=== PATIENT | female | born 1965 | race Caucasian/White ===

== ENCOUNTER 2017-04-04 17:46 | Emergency (ER) | payer MEDICAID, OTHER ==
[2017-04-04] MEDS ORDERED: predniSONE 20 MG Tab PO ONE (18:11)
--- NOTE | 2017-04-04 18:18 | EDM.PDOC ---
ED HPI GENERAL MEDICAL PROBLEM - General Chief Complaint: Upper Extremity Injury/Pain Stated Complaint: RIGHT ARM PAIN Time Seen by Provider: 04/04/17 17:57 Source of Information: Reports: Patient History Limitations: Reports: No Limitations - History of Present Illness INITIAL COMMENTS - FREE TEXT/NARRATIVE: PATIENT IS A 51-YEAR-OLD FEMALE WHO PRESENTS EMERGENCY DEPARTMENT THIS EVENING WITH A COMPLAINT OF RIGHT UPPER EXTREMITY PAIN. PATIENT STATES SHE DID INJURE RIGHT ELBOW 3 MONTHS AGO BUT PAIN RESOLVED. PATIENT STATES THAT ABOUT ONE MONTH AGO SHE STARTED FEELING RIGHT UPPER EXTREMITY DISCOMFORT AND TINGLING INITIALLY WITH MOVEMENT AND THEN GRADUALLY EVEN WHILE AT REST. NOTICED SYMPTOMS WORSENED. DEPENDING ON POSITION OF HEAD. PAIN RUNS FROM SHOULDER TO FINGERS. SHE IS A [id number] DIABETIC, TAKES METFORMIN, HAS HISTORY OF SCOLIOSIS, AND ALSO HYPERCHOLESTEROLEMIA AND IS CURRENTLY ON A STATIN. HOWEVER, SHE DENIES MUSCLE ACHES. PATIENT ALSO DENIES CERVICAL INJURY OR TRAUMA , FEVER, CHEST PAIN, SHORTNESS OF BREATH, OR LUMPS IN AXILLA. 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 - Related Data Allergies Allergy/AdvReac Type Severity Reaction Status Date / Time No Known Drug Allergies Allergy Other Verified 04/04/17 18:16 Home Meds: Home Meds Aspirin [Adult Low Dose Aspirin EC] 81 mg PO DAILY 10/07/13 [History] Pravastatin [Pravachol] 40 mg PO DAILY 10/07/13 [History] Triamterene/Hydrochlorothiazid [Triamterene-HCTZ 37.5-25 MG] 1 tab PO DAILY [History] clonazePAM [Clonazepam] 0.5 mg PO BID PRN 10/07/13 [History] metFORMIN HCl [Metformin HCl ER] 1,000 mg PO CORAZON 10/07/13 [History] DULoxetine [Cymbalta] 30 mg PO DAILY 04/04/17 [History] DULoxetine [Cymbalta] 60 mg PO DAILY 04/04/17 [History] Naproxen [Naprosyn] 375 mg PO BID #30 tab 04/04/17 [Rx] Prednisone [IJD: predniSONE] 20 mg PO WITHBREAKFAST #5 tab 04/04/17 [Rx] SitaGLIPtin [Januvia] 100 mg PO DAILY 04/04/17 [History] Social & Family History - Tobacco Use Years of Tobacco use: 30 - Alcohol Use Days Per Week of Alcohol Use: 1 Number of Drinks Per Day: 1 Total Drinks Per Week: 1 - Recreational Drug Use Recreational Drug Use: No - Living Situation & Occupation Living situation: Reports: Occupation: Employed Review of Systems - Review of Systems Review Of Systems: ROS reveals no pertinent complaints other than HPI. Constitutional: Reports: No Symptoms Eyes: Reports: No Symptoms Ears: Reports: No Symptoms Nose: Reports: No Symptoms Mouth/Throat: Reports: No Symptoms Respiratory: Reports: No Symptoms Cardiovascular: Reports: No Symptoms GI/Abdominal: Reports: No Symptoms Genitourinary: Reports: No Symptoms Musculoskeletal: Reports: Arm Pain (RIGHT) Skin: Reports: No Symptoms Neurological: Reports: No Symptoms Psychiatric: Reports: No Symptoms ED EXAM, GENERAL - Physical Exam Exam: See Below Exam Limited By: No Limitations General Appearance: Alert, WD/WN, No Apparent Distress Throat/Mouth: Normal Inspection, Normal Oropharynx, No Airway Compromise Head: Atraumatic, Normocephalic Neck: Tender Lateral (WITH RANGE OF MOTION). No: Lymphadenopathy (L), Lymphadenopathy (R), Tender Midline Respiratory/Chest: No Respiratory Distress Back Exam: Normal Inspection Extremities: Arm Pain (WITH CERVICAL MANIPULATION AND SHOULDER RANGE OF MOTION.) . No: Joint Swelling, Limited Range of Motion, Increased Warmth Neurological: Alert, Oriented, Normal Cognition Psychiatric: Normal Affect, Normal Mood Skin Exam: Warm, Dry, Intact, Normal Color, No Rash Lymphatic: No Adenopathy Course - Orders/Labs/Meds Orders: Active Orders 24 hr Category Date Time Status Naproxen Sodium Med 04/04/17 18:15 Ordered 440 mg PO ONETIME predniSONE Med 04/04/17 18:11 Once 40 mg PO ONETIME ONE - Re-Assessments/Exams Free Text/Narrative Re-Assessment/Exam: 04/04/17 18:21 PATIENT IS AFEBRILE, NONTOXIC APPEARING. VITAL SIGNS STABLE. PATIENT WAS GIVEN INITIAL DOSE OF PREDNISONE, NAPROXEN IN THE EMERGENCY DEPARTMENT. PATIENT WILL BE STARTED ON A SHORT DOSE OF PREDNISONE AND IS SCHEDULED TO SEE DR. LIZAMA FOR FURTHER EVALUATION AND CONSIDERATION. Departure - Departure Time of Disposition: 18:22 Disposition: Home, Self-Care 01 Condition: Good Clinical Impression: Cervical radiculopathy - Discharge Information Instructions: Cervical Radiculopathy, [id number] Referrals: Lina Vásquez MD [Primary Care Provider] - Forms: ED Department Discharge Additional Instructions: FOLLOW-UP WITH DR. LIZAMA SCHEDULED. RETURN TO EMERGENCY DEPARTMENT SOONER IF SYMPTOMS CONTINUE OR WORSEN. - My Orders Last 24 Hours: My Active Orders 04/04/17 18:11 predniSONE 40 mg PO ONETIME ONE 04/04/17 18:15 Naproxen Sodium 440 mg PO ONETIME - Assessment/Plan Last 24 Hours: My Active Orders 04/04/17 18:11 predniSONE 40 mg PO ONETIME ONE 04/04/17 18:15 Naproxen Sodium 440 mg PO ONETIME Assessment:: RIGHT ARM PAIN, CERVICAL RADICULOPATHY Plan: FOLLOW-UP WITH DR. LIZAMA SCHEDULED
== END 2017-04-04 18:40 | disposition home or self-care (01) ==
LOC: KA.ED 17:46
DX: M54.12 Radiculopathy, cervical region (principal); M79.601 Pain in right arm; E11.9 Type 2 diabetes mellitus without complications; Z79.84 Long term (current) use of oral hypoglycemic drugs; Z79.82 Long term (current) use of aspirin; Z79.899 Other long term (current) drug therapy
CPT/HCPCS: 99283; A9270

== ENCOUNTER 2017-10-24 22:17 | Emergency (ER) | payer MEDICAID ==
[2017-10-24 22:29] VITALS: BP 111/77
--- NOTE | 2017-10-24 22:50 | EDM.PDOC ---
ED HPI GENERAL MEDICAL PROBLEM - General Chief Complaint: Upper Extremity Injury/Pain Stated Complaint: Pain Time Seen by Provider: 10/24/17 22:41 Source of Information: Reports: Patient History Limitations: Reports: No Limitations - History of Present Illness INITIAL COMMENTS - FREE TEXT/NARRATIVE: Patient is a 52-year-old female who presents to the emergency department this evening with a complaint of right shoulder pain. Patient states that she was seen here on September 26 and underwent a MRI of right shoulder. Results show SLAP tear of labrum. Patient states she is scheduled for surgery November 27. 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 Patient denies recent injury, chest pain, shortness of breath, or fever. 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 Right Shoulder Pain Score (Numeric/FACES): 8 - Related Data Allergies Allergy/AdvReac Type Severity Reaction Status Date / Time No Known Drug Allergies Allergy Other Verified 10/24/17 22:23 Home Meds: Home Meds Aspirin [Adult Low Dose Aspirin EC] 81 mg PO DAILY 10/07/13 [History] Pravastatin [Pravachol] 40 mg PO DAILY 10/07/13 [History] Triamterene/Hydrochlorothiazid [Triamterene-HCTZ 37.5-25 MG] 1 tab PO DAILY [History] clonazePAM [Clonazepam] 1 mg PO TID PRN 10/07/13 [History] metFORMIN HCl [Metformin HCl ER] 1,000 mg PO BID 10/07/13 [History] DULoxetine [Cymbalta] 30 mg PO DAILY 04/04/17 [History] DULoxetine [Cymbalta] 60 mg PO DAILY 04/04/17 [History] SitaGLIPtin [Januvia] 100 mg PO DAILY 04/04/17 [History] Naproxen [Naprosyn] 440 mg PO BID 10/24/17 [History] glipiZIDE [Glucotrol] 10 mg PO BID 10/24/17 [History] Past Medical History HEENT History: Reports: Impaired Vision Musculoskeletal History: Reports: Other (See Below) Other Musculoskeletal History: Scoliosis, here for Rt Arm pain Psychiatric History: Reports: Anxiety, Depression Endocrine/Metabolic History: Reports: Diabetes, Type II Hematologic History: Reports: Anemia, B12 Deficiency - Past Surgical History HEENT Surgical History: Reports: None Endocrine Surgical History: Reports: None Musculoskeletal Surgical History: Reports: None Social & Family History - Family History Family Medical History: Noncontributory - Tobacco Use Smoking Status *Q: Current Every Day Smoker Years of Tobacco use: 18 Packs/Tins Daily: 1.5 Second Hand Smoke Exposure: Yes - Caffeine Use Caffeine Use: Reports: Soda - Recreational Drug Use Recreational Drug Use: No - Living Situation & Occupation Living situation: Reports: Occupation: Employed Review of Systems - Review of Systems Review Of Systems: ROS reveals no pertinent complaints other than HPI. Constitutional: Reports: No Symptoms Eyes: Reports: No Symptoms Ears: Reports: No Symptoms Nose: Reports: No Symptoms Mouth/Throat: Reports: No Symptoms Respiratory: Reports: No Symptoms Cardiovascular: Reports: No Symptoms GI/Abdominal: Reports: No Symptoms Genitourinary: Reports: No Symptoms Musculoskeletal: Reports: No Symptoms, Arm Pain (Right shoulder) Skin: Reports: No Symptoms Neurological: Reports: No Symptoms Psychiatric: Reports: No Symptoms ED EXAM, GENERAL - Physical Exam Exam: See Below Exam Limited By: No Limitations General Appearance: Alert, WD/WN, No Apparent Distress Throat/Mouth: Normal Inspection, Normal Oropharynx, No Airway Compromise Respiratory/Chest: No Respiratory Distress Back Exam: Normal Inspection, Full Range of Motion Extremities: Arm Pain (Right shoulder discomfort with range of motion. No crepitus or erythema noted) Neurological: Alert, Oriented, Normal Cognition Psychiatric: Normal Affect, Normal Mood Skin Exam: Warm, Dry, Intact, Normal Color, No Rash Lymphatic: No Adenopathy Course - Vital Signs Last Recorded V/S: Last Vital Signs Temp 99.8 F 10/24/17 22:25 Pulse 85 10/24/17 22:25 Resp 18 10/24/17 22:25 BP 111/77 10/24/17 22:25 Pulse Ox 94 L 10/24/17 22:25 - Orders/Labs/Meds Orders: Active Orders 24 hr Category Date Time Status Ketorolac [Toradol] Med 10/24/17 22:45 Once 60 mg IM ONETIME ONE - Re-Assessments/Exams Free Text/Narrative Re-Assessment/Exam: 10/24/17 22:53 Patient afebrile, nontoxic appearing, vital signs stable. Patient placed in a sling and given 60 mg IM Toradol. Patient is diabetic, so no steroids at this time. She will follow-up with PCP and/or orthopedic surgeon for review. Departure - Departure Time of Disposition: 22:57 Disposition: Home, Self-Care 01 Condition: Good Clinical Impression: Shoulder pain, right Qualifiers: Chronicity: chronic Qualified Code(s): M25.511 - Pain in right shoulder; G89.29 - Other chronic pain SLAP (superior labrum from anterior to posterior) tear Qualifiers: Encounter type: sequela Laterality: right Qualified Code(s): S43.431S - Superior glenoid labrum lesion of right shoulder, sequela - Discharge Information Instructions: How to Use a Sling, [id number], Shoulder Pain, [id number], SLAP Lesions Referrals: Lina Vásquez MD [Primary Care Provider] - Additional Instructions: Follow-up at [facility] and orthopedic surgeon. Take anti-inflammatories as required, use ice, and sling for comfort. - My Orders Last 24 Hours: My Active Orders 10/24/17 22:45 Ketorolac [Toradol] 60 mg IM ONETIME ONE - Assessment/Plan Last 24 Hours: My Active Orders 10/24/17 22:45 Ketorolac [Toradol] 60 mg IM ONETIME ONE Assessment:: Right shoulder pain Plan: Follow-up with PCP and orthopedic surgeon
[2017-10-24] MEDS: Ketorolac 60 MG/2 ML SDV IM ONE (22:55)
[2017-10-24] MEDS: Acetaminophen/HYDROcodone 325-10 MG Tab PO ONE (23:27)
== END 2017-10-24 23:25 | disposition home or self-care (01) ==
LOC: KA.ED 22:17
DX: S43.431S Superior glenoid labrum lesion of right shoulder, sequela (principal); M25.511 Pain in right shoulder; F17.210 Nicotine dependence, cigarettes, uncomplicated; E11.9 Type 2 diabetes mellitus without complications; F41.9 Anxiety disorder, unspecified; F32.9 Major depressive disorder, single episode, unspecified; Z79.82 Long term (current) use of aspirin; Z79.84 Long term (current) use of oral hypoglycemic drugs; Z79.899 Other long term (current) drug therapy; X58.XXXS Exposure to other specified factors, sequela
CPT/HCPCS: 96372; 99283; A9270-GY; J1885